=== PATIENT | female | born 1960 | race Caucasian/White ===

== ENCOUNTER 2016-10-18 08:00 | Emergency (ER) | payer BC ==
[~2016-10-18] VITALS: Ht 162.6 cm; Wt 61.0 kg
[2016-10-18 08:03] VITALS: Ht 162.6 cm; Wt 61.0 kg
[2016-10-18] MEDS ORDERED: MoRPHine SULFATE 4 MG/ML 1 ML CARP\\VIAL IV STA ×2 (08:11→08:49)
[2016-10-18] MEDS ORDERED: SODIUM CHLORIDE 0.9% 1000ML 1,000 ML IV SCH (08:15)
[2016-10-18 08:22] LABS: BASO % 0.8 %; BASO ABS # 0.04 K/uL (0-0.2); COMPLETE YES; HEMATOCRIT 42.5 % (37-47); IG% 0.2 %; LYMPH % 45.7 %; LYMPH ABS # 2.34 K/uL (1.2-3.4); MEAN CELL VOLUME 88.5 fL (80-100); MEAN CORPUSCULAR HEMOGLOBIN 29.6 pg (25-34); MEAN CORPUSCULAR HGB CONC 33.4 g/dl (32-36); MEAN PLATELET VOLUME 9.4 fL (7.4-10.4); MONO % 6.1 %; NEUT % 46.2 %; PLATELET COUNT 327 K/uL (130-400); WHITE BLOOD COUNT 5.12 K/uL (4.8-10.8)
[2016-10-18 08:37] LABS: BUN/CREATININE RATIO 13.8 (10-20); CALCIUM 9.4 mg/dl (8.5-10.1); CREATININE 0.78 mg/dl (0.60-1.20); POTASSIUM 4.2 mmol/L (3.5-5.1)
[2016-10-18] MEDS ORDERED: FLUT0.15 INH (08:39)
[2016-10-18] MEDS ORDERED: CETI-41 PO (08:39)
[2016-10-18] MEDS ORDERED: AMLO-110 PO (08:39)
--- NOTE | 2016-10-18 08:42 | DIAGNOSTIC IMAGING REPORT ---
CHEST ONE VIEW PORTABLE CLINICAL HISTORY: EVALUATE ALTERED MENTAL STATUS/WEAKNESS COMPARISON STUDY: No previous studies for comparison. FINDINGS: The bones soft tissues and hemidiaphragms are normal. The cardiomediastinal silhouette is normal. The lungs are clear. The pulmonary vasculature is normal. IMPRESSION: Negative chest. Electronically signed by: Lionel Enamorado M.D. 10/18/2016 8:41 AM Dictated Date/Time: 10/18/2016 8:40 AM
--- NOTE | 2016-10-18 08:44 | DIAGNOSTIC IMAGING REPORT ---
ELBOW 2 VIEWS CLINICAL HISTORY: FALL trauma COMPARISON: None. DISCUSSION: Fracture dislocation right elbow. Humerus is dislocated anteriorly in relation to the ulna. Several loose bodies are present posterior to the distal humerus. Potentially represent small avulsions from the region of the distal humerus. There is a fracture of the radial head. Fracture extends to the articular surface. Moderate soft tissue edema. IMPRESSION: Fracture dislocation right elbow. Fracture radial head extending to the articular services. Anterior dislocation of the humerus with several small ossific fragments identified posteriorly Electronically signed by: Lionel Enamorado M.D. 10/18/2016 8:43 AM Dictated Date/Time: 10/18/2016 8:42 AM
--- NOTE | 2016-10-18 09:37 | DIAGNOSTIC IMAGING REPORT ---
RIGHT ELBOW 2 VIEWS HISTORY:56 yearsFemale. Follow-up exam of elbow fracture dislocation. Postreduction. COMPARISON: Elbow radiographs of same day at 8:25 AM TECHNIQUE: Portable frontal and lateral radiographs of the right elbow were obtained post reduction. FINDINGS: Comminuted intra-articular fracture of the radial head is again noted with approximately 3 mm of volar displacement, improved. There is also subtle lucency involving the posterior aspect of the distal humerus seen only on the lateral view. There are multiple bony fragments posterior to the elbow measuring up to 9 mm in length. There is cortical irregularity of the capitellum. The elbow joint now appears to be in appropriate alignment. Large elbow joint effusion. There is spurring of the olecranon and lateral epicondyles. There is moderate soft tissue swelling, greatest laterally. IMPRESSION: 1. Status post reduction of the previously described fracture dislocation of the elbow. The elbow now appears to be appropriately located. 2. Mildly displaced and comminuted radial head fracture demonstrates improved alignment. 3. Questioned fractures of the posterior distal humerus and capitellum with fracture fragments about the posterior elbow. This can be correlated with follow-up CT. 4. Large elbow joint effusion. The above report was generated using voice recognition software. It may contain grammatical, syntax or spelling errors. Electronically signed by: Dwight Guzmán 10/18/2016 9:36 AM Dictated Date/Time: 10/18/2016 9:31 AM
[2016-10-18] MEDS ORDERED: MoRPHine SULFATE 4 MG/ML 1 ML CARP\\VIAL IV PRN (10:15)
--- NOTE | 2016-10-18 11:48 | DIAGNOSTIC IMAGING REPORT ---
CT OF THE RIGHT ELBOW CT DOSE: 621.99 mGy.cm HISTORY: Trauma. Fracture. rt elbow injury Right TECHNIQUE: Multiaxial CT images of the right elbow were performed and reformatted in the sagittal and coronal plane without the use of contrast. COMPARISON: Routine films earlier same date FINDINGS: Previously described displaced fractures have been reduced. Fracture radial head is again noted. It is improved in alignment. Fracture again extends to the articular surface. There currently is no evidence for depression although there is a 3 mm separation at the articular surface. Size of the secondary fracture fragment is 8 mm at maximum. Several tiny ossific fragments at the fracture line are noted. There are several avulsed bony fragments appearing to originate from the posterior aspect of the distal humerus as well as calf patella in. These measure up to and include 5 mm in length with several smaller fragments noted posterior to the distal humerus. There is a joint effusion. Study currently is negative for dislocation. IMPRESSION: 1. Anatomic alignment of the major fractures previously described including near anatomic alignment of the radial head fracture. 2. Radial head and neck fracture extending to the articular surface with no major evidence for depression. Estimated maximum separation at the articular services 3 mm. 3. Several ossific fragments originating from the distal humerus and proximal ulna medially posterior to the distal humerus. 4. Soft tissue edema. Electronically signed by: Lionel Enamorado M.D. 10/18/2016 11:46 AM Dictated Date/Time: 10/18/2016 11:39 AM
[2016-10-18] MEDS ORDERED: OXYC-57 PO (12:20)
--- NOTE | 2016-10-18 12:21 | EMERGENCY ROOM VISIT NOTE ---
History Report prepared by Suzanne: Pablo Bauer Under the Supervision of: Dr. Juvenal Rose D.O. First contact with patient: 08:03 Chief Complaint: FALL Stated Complaint: FALL,POSSIBLE FRACTURES OF RIGHT SIDE History of Present Illness The patient is a 56 year old female who presents to the Emergency Room with complaints of severe right elbow pain secondary to a fall occurring about half an hour ago. She has worsening pain with movement. As per , the patient tripped over a beach chair and fell on her right arm. She was able to walk from the location of the fall to the car to get her . Since the incident, the patient has been having intermittent unresponsiveness. The patient denies hitting her head. She reports diaphoresis. Prior to the fall, the patient was at baseline. She did not have any recent illnesses. She denies headache, lower extremity pain/swelling, or any other complaints. Source of History: patient Onset: about half an hour ago Position: elbow (right) Symptom Intensity: severe Modifying Factors (Worsening): movement Associated Symptoms: + diaphoresis, No headache Review of Systems See HPI for pertinent positives & negatives. A total of 10 systems reviewed and were otherwise negative. Past Medical & Surgical Medical Problems: (1) Hyperlipidemia (2) Hypertension (3) Uterine leiomyoma Family History Patient reports no known family medical history. Social History Smoking Status: Never Smoker Marital Status: Housing Status: lives with family Occupation Status: employed Current/Historical Medications Scheduled Amlodipine (Norvasc), 5 MG PO QAM Cetirizine HCl (Zyrtec Allergy), 1 TAB PO HS Fluticasone Propionate (Nasal) (Flonase Allergy Relief), 2 SPRAYS INH QAM Scheduled PRN Oxycodone/Acetaminophen 5MG/325MG (Percocet 5MG/325MG), 1 TAB PO Q6H PRN for Pain Allergies Coded Allergies: No Known Allergies (Unverified , 10/18/16) Physical Exam Vital Signs Date Time Temp Pulse Resp B/P (MAP) Pulse Ox O2 Delivery O2 Flow Rate FiO2 10/18/16 12:15 63 10/18/16 10:00 49 17 121/77 99 Room Air 10/18/16 09:07 47 16 97/65 95 Room Air 10/18/16 08:45 46 16 106/70 100 Room Air 10/18/16 08:23 45 16 102/67 98 Room Air 10/18/16 08:08 43 10/18/16 08:03 45 12 95/52 94 Room Air Physical Exam CONSTITUTIONAL/VITAL SIGNS: Reviewed / noted above. GENERAL: Non-toxic in appearance. INTEGUMENTARY: Diaphoretic, clammy, cool. HEAD: Normocephalic. EYES: without scleral icterus or trauma. ENT/OROPHARYNX: clear and moist. LYMPHADENOPATHY/NECK: Is supple without lymphadenopathy or meningismus. RESPIRATORY: Lungs clear and equal. CARDIOVASCULAR: Regular rate and rhythm. GI/ABDOMEN: Soft and nontender. No organomegaly or pulsatile mass. No rebound or guarding. Normal bowel sounds. EXTREMITIES: Warm and well perfused. There is a palpable deformity of the right elbow, suggestive of dislocation, neurovascularly intact distally. BACK: No CVA tenderness. NEUROLOGICAL: Intact without focal deficits. PSYCHIATRIC: normal affect. MUSCULOSKELETAL: Normally developed with good muscle tone. Medical Decision & Procedures ER Provider Diagnostic Interpretation: X ray results and stated below per my interpretation and radiology interpretation. ELBOW 2 VIEWS CLINICAL HISTORY: FALL trauma COMPARISON: None. DISCUSSION: Fracture dislocation right elbow. Humerus is dislocated anteriorly in relation to the ulna. Several loose bodies are present posterior to the distal humerus. Potentially represent small avulsions from the region of the distal humerus. There is a fracture of the radial head. Fracture extends to the articular surface. Moderate soft tissue edema. IMPRESSION: Fracture dislocation right elbow. Fracture radial head extending to the articular services. Anterior dislocation of the humerus with several small ossific fragments identified posteriorly Electronically signed by: Lionel Enamorado M.D. 10/18/2016 8:43 AM Dictated Date/Time: 10/18/2016 8:42 AM CHEST ONE VIEW PORTABLE CLINICAL HISTORY: EVALUATE ALTERED MENTAL STATUS/WEAKNESS COMPARISON STUDY: No previous studies for comparison. FINDINGS: The bones soft tissues and hemidiaphragms are normal. The cardiomediastinal silhouette is normal. The lungs are clear. The pulmonary vasculature is normal. IMPRESSION: Negative chest. Electronically signed by: Lionel Enamorado M.D. 10/18/2016 8:41 AM Dictated Date/Time: 10/18/2016 8:[address] results as stated below per my review and radiologist interpretation: CT OF THE RIGHT ELBOW CT DOSE: 621.99 mGy.cm HISTORY: Trauma. Fracture. rt elbow injury Right TECHNIQUE: Multiaxial CT images of the right elbow were performed and reformatted in the sagittal and coronal plane without the use of contrast. COMPARISON: Routine films earlier same date FINDINGS: Previously described displaced fractures have been reduced. Fracture radial head is again noted. It is improved in alignment. Fracture again extends to the articular surface. There currently is no evidence for depression although there is a 3 mm separation at the articular surface. Size of the secondary fracture fragment is 8 mm at maximum. Several tiny ossific fragments at the fracture line are noted. There are several avulsed bony fragments appearing to originate from the posterior aspect of the distal humerus as well as calf patella in. These measure up to and include 5 mm in length with several smaller fragments noted posterior to the distal humerus. There is a joint effusion. Study currently is negative for dislocation. IMPRESSION: 1. Anatomic alignment of the major fractures previously described including near anatomic alignment of the radial head fracture. 2. Radial head and neck fracture extending to the articular surface with no major evidence for depression. Estimated maximum separation at the articular services 3 mm. 3. Several ossific fragments originating from the distal humerus and proximal ulna medially posterior to the distal humerus. 4. Soft tissue edema. Electronically signed by: Lionel Enamorado M.D. 10/18/2016 11:46 AM Dictated Date/Time: 10/18/2016 11:39 AM Laboratory Results 10/18/16 08:10 Red Blood Count 4.80, Mean Corpuscular Volume 88.5, Mean Corpuscular Hemoglobin 29.6, Mean Corpuscular Hemoglobin Concent 33.4, Mean Platelet Volume 9.4, Neutrophils (%) (Auto) 46.2, Lymphocytes (%) (Auto) 45.7, Monocytes (%) (Auto) 6.1, Eosinophils (%) (Auto) 1.0, Basophils (%) (Auto) 0.8, Neutrophils # (Auto) 2.37, Lymphocytes # (Auto) 2.34, Monocytes # (Auto) 0.31, Eosinophils # (Auto) 0.05, Basophils # (Auto) 0.04 10/18/16 08:10 Test 10/18/16 08:10 White Blood Count 5.12 K/uL (4.8-10.8) Red Blood Count 4.80 M/uL (4.2-5.4) Hemoglobin 14.2 g/dL (12.0-16.0) Hematocrit 42.5 % (37-47) Mean Corpuscular Volume 88.5 fL (80-100) Mean Corpuscular Hemoglobin 29.6 pg (25-34) Mean Corpuscular Hemoglobin Concent 33.4 g/dl (32-36) Platelet Count 327 K/uL (130-400) Mean Platelet Volume 9.4 fL (7.4-10.4) Neutrophils (%) (Auto) 46.2 % Lymphocytes (%) (Auto) 45.7 % Monocytes (%) (Auto) 6.1 % Eosinophils (%) (Auto) 1.0 % Basophils (%) (Auto) 0.8 % Neutrophils # (Auto) 2.37 K/uL (1.4-6.5) Lymphocytes # (Auto) 2.34 K/uL (1.2-3.4) Monocytes # (Auto) 0.31 K/uL (0.11-0.59) Eosinophils # (Auto) 0.05 K/uL (0-0.5) Basophils # (Auto) 0.04 K/uL (0-0.2) RDW Standard Deviation 41.8 fL (36.4-46.3) RDW Coefficient of Variation 12.9 % (11.5-14.5) Immature Granulocyte % (Auto) 0.2 % Immature Granulocyte # (Auto) 0.01 K/uL (0.00-0.02) Anion Gap 8.0 mmol/L (3-11) Est Creatinine Clear Calc Drug Dose 68.8 ml/min Estimated GFR () 97.8 Estimated GFR (Non- 84.4 BUN/Creatinine Ratio 13.8 (10-20) Calcium Level 9.4 mg/dl (8.5-10.1) Laboratory results as stated above per my review. Medications Administered Medications (Trade) Dose Ordered Sig/Óscar Route Start Time Stop Time Status Last Admin Dose Admin Morphine Sulfate (MoRPHine SULFATE INJ) 4 mg NOW STAT IV 10/18/16 08:11 10/18/16 08:15 DC 10/18/16 08:20 4 MG Sodium Chloride 1,000 ml @ 999 mls/hr Q1H1M IV 10/18/16 08:15 11/17/16 08:14 10/18/16 08:18 999 MLS/HR Morphine Sulfate (MoRPHine SULFATE INJ) 4 mg NOW STAT IV 10/18/16 08:49 10/18/16 08:50 DC 10/18/16 08:55 4 MG Morphine Sulfate (MoRPHine SULFATE INJ) 4 mg Q15M PRN IV 10/18/16 10:15 11/01/16 10:14 10/18/16 10:08 4 MG ECG Indication: other (Unresponsiveness) Rate (beats per minute): 44 Rhythm: sinus bradycardia Findings: no acute ischemic change, no ectopy ED Course 0803: Previous medical records were reviewed. The patient was evaluated in room B06. A complete history and physical examination was performed. 0811: Morphine Sulfate 4 mg IV 0815: Sodium Chloride 1000 ml @ 999 mls/hr IV 0849: Morphine Sulfate 4 mg IV. I performed elbow dislocation reduction. Refer to procedure note for further details. 1015: Morphine Sulfate 4 mg IV 1206: On reevaluation, the patient is resting comfortably. I discussed the results and findings with the patient. She verbalized agreement of the treatment plan. She was discharged home. Medical Decision Medication Reconciliation: I attest that I have personally reviewed the patient' s current medication list. Blood pressure Screening: Patient was found to have normal blood pressure on screening and does not require follow-up. Differential diagnosis: Etiologies such as fracture, dislocation, intra-abdominal, pneumothorax, intrathoracic , intracranial, neurologic, as well as other traumatic pathologies were entertained. This is a 56-year-old female who presents to the ED with a chief complaint of a fall and a right elbow injury. The patient tripped over a chair. She landed on her right side/elbow. She presented to the ED with complaints of right elbow pain. She also was clammy and cool when she arrived. The patient's physical exam is noted above. Elbow clinically appears to be dislocated. There are no open wounds there. There is some soft tissue edema. Distally she is neurovascularly intact. EKG showed a sinus bradycardia at a rate of 44. CBC and PRP are normal, chest x-ray was negative for acute disease. Initial x- ray of the right elbow reveals a dislocation and fracture. This was reduced. Postreduction CT scan reveals near anatomic alignment of the fracture and the dislocation is no longer present. The patient's arm was placed in a long-arm splint. She was given IV morphine during her ED stay for pain. She was given some IV fluids as well. The patient appears to be more comfortable. She is neurovascularly intact after splinting. Percocet prescription provided with outpatient orthopedic follow-up recommended. Impression Primary Impression: Dislocation, elbow closed Additional Impression: Radial head fracture, closed elbow fracture/dislocation Scribe Attestation The scribe's documentation has been prepared under my direction and personally reviewed by me in its entirety. I confirm that the note above accurately reflects all work, treatment, procedures, and medical decision making performed by me. Departure Information Dispostion Home / Self-Care Prescriptions Oxycodone/Acetaminophen 5MG/325MG (PERCOCET 5MG/325MG) Tab 1 TAB PO Q6H Y for Pain, #30 TAB Prov: Juvenal Rose D.O. 10/18/16 Referrals Murali Bryan M.D. (PCP) Forms HOME CARE DOCUMENTATION FORM, IMPORTANT VISIT INFORMATION Patient Instructions My [facility] Additional Instructions Your elbow was dislocated and has a fracture of the radial head. Keep splint clean and dry. Call Dr. Hartman for follow-up on Friday. Call today for appointment. Percocet as prescribed. No driving within 6 hours of use. Do not take additional Tylenol while taking Percocet. Follow-up with your doctor for further care and evaluation in 1-2 days. Return to the emergency department for worsening or new symptoms or any concerns. You have been examined and treated today on an emergency basis only. This is not a substitute for, or an effort to provide, complete comprehensive medical care. It is impossible to recognize and treat all injuries or illnesses in a single emergency department visit. It is therefore important that you follow up closely with your doctor. Call as soon as possible for an appointment. Problem Qualifiers
[2016-10-18] MEDS ORDERED: KETOROLAC TROMETHAMINE 30 MG/ML VIAL ONE (12:54)
[2016-10-18 12:57] VITALS: BP 127/87; PULSE 59; O2SAT 96
[2016-10-21] MEDS ORDERED: IBUP-1105 PO (14:02)
== END 2016-10-18 13:12 | disposition home or self-care (01) ==
LOC: C.EDB 08:01
DX: S52.121A Displaced fracture of head of right radius, initial encounter for closed fracture (principal); S53.114A Anterior dislocation of right ulnohumeral joint, initial encounter; W18.09XA Striking against other object with subsequent fall, initial encounter; E78.5 Hyperlipidemia, unspecified; I10 Essential (primary) hypertension; Z79.899 Other long term (current) drug therapy

== ENCOUNTER → 2016-10-21 | Outpatient (CLI) | payer BC ==
[~2016-10-21] MED LIST: AMLO-110 PO; CETI-41 PO; FLUT0.15 INH; IBUP-1105 PO; OXYC-57 PO
[2016-10-21 13:39] LABS: BASO % 0.3 %; BASO ABS # 0.03 K/uL (0-0.2); COMPLETE YES; EOS % 0.2 %; HEMATOCRIT 41.5 % (37-47); IG% 0.1 %; LYMPH % 19.8 %; LYMPH ABS # 1.74 K/uL (1.2-3.4); MEAN CELL VOLUME 88.7 fL (80-100); MEAN CORPUSCULAR HEMOGLOBIN 28.6 pg (25-34); MEAN CORPUSCULAR HGB CONC 32.3 g/dl (32-36); MEAN PLATELET VOLUME 9.9 fL (7.4-10.4); MONO % 8.6 %; PLATELET COUNT 356 K/uL (130-400); RED BLOOD COUNT 4.68 M/uL (4.2-5.4); WHITE BLOOD COUNT 8.81 K/uL (4.8-10.8)
[2016-10-21 14:17] LABS: BLOOD UREA NITROGEN 12 mg/dl (7-18); CALCIUM 9.7 mg/dl (8.5-10.1); CARBON DIOXIDE 27 mmol/L (21-32); CHLORIDE 103 mmol/L (98-107); CREATININE 0.63 mg/dl (0.60-1.20); GLUCOSE 100 mg/dl (70-99); POTASSIUM 3.6 mmol/L (3.5-5.1); SODIUM 139 mmol/L (136-145)
== END | disposition home or self-care (01) ==
LOC: C.LAB1850 11:59
PROVIDERS: ATTEND Physician Assistant
DX: Z01.818 Encounter for other preprocedural examination (principal)

== ENCOUNTER → 2016-10-22 | Day surgery (SDC) | payer BC ==
--- NOTE | 2016-10-21 11:33 | History and Physical: Surg Cnt ---
History & Physical Date Oct 21, 2016. Chief Complaint Right elbow fracture History of Present Illness This 56-year-old white female presents to the office with complaints of right elbow pain after falling on Friday morning. She was at home and was "rushing" around. She fell in the garage after tripping on a beach chair. She fell driectly onto her elbow. She was seen in the ED and diagnosed with a elbow fracture dislocation. This was reduced. Subsequent radiographic imaging and CT scan imaging showed a comminuted radial head fracture with 3 mm of displacement. She was splinted and reports here for further management. All she states her pain at this point his minimal in the elbow. She has more discomfort from swelling in her fingers. She denies any numbness or tingling. Right-hand dominant. No prior history of significant right elbow injury, though she states she has bumped it numerous times in the past. No shoulder pain. Her accompanies her. Past Medical/Surgical History Previous surgeries: None Medical history: Significant for hypertension and anxiety. History of migraines many years ago. Additional History Hepatic Disease: No Endocrine Disorder: No Kidney Disease: No Heart Disease: No Bleeding Tendencies: No Infectious Diseases: No Allergies Coded Allergies: No Known Allergies (Unverified , 10/18/16) Home Medications Scheduled Amlodipine (Norvasc), 5 MG PO QAM Cetirizine HCl (Zyrtec Allergy), 1 TAB PO HS Fluticasone Propionate (Nasal) (Flonase Allergy Relief), 2 SPRAYS INH QAM Scheduled PRN Oxycodone/Acetaminophen 5MG/325MG (Percocet 5MG/325MG), 1 TAB PO Q6H PRN for Pain Social History Smoking Status: Never Smoker Alcohol Use: occasionally Additional Notes: Family history: Noncontributory. Review of systems: Significant for above-stated conditions, otherwise unremarkable. Physical Examination Skin: warm/dry, no rash Eyes: normal inspection, EOMI, sclerae normal ENT: normal ENT inspection, pharynx normal Head: normocephalic, atraumatic Respiratory/Chest: lungs clear, normal breath sounds, no respiratory distress Cardiovascular: regular rate, rhythm, no murmur Abdomen / GI: normal bowel sounds, non tender Extremities: + pertinent finding (right arm is splinted. No elbow motion. Intact motion to the shoulder. Intact motion to her wrist and digits as well. Digits are edematous.) Neurologic/Psych: no motor/sensory deficits, oriented x 3 Addiitonal Comments: CT scan imaging and regular radiographic imaging previously obtained shows a comminuted radial head fracture with 3 mm of displacement. There are also small bone chips posteriorly of the humerus. It is unclear as to whether these are new or old. These have been read by radiology. Diagnosis Right elbow radial head fracture Operation Right elbow radial head and neck ORIF and possible UCL repair Plan: Patient has been educated regarding today's findings. Informed written consent has been obtained by Dr. Mccray to proceed with right elbow radial head and neck ORIF and possible UCL repair. Preoperative CBC, PRP, and EKG were ordered. Prescription has been provided for Keflex. She already has a prescription for Percocet.
[2016-10-21 14:03] VITALS: Ht 162.6 cm; Wt 56.8 kg
[~2016-10-22] VITALS: Ht 162.6 cm; Wt 56.8 kg
[~2016-10-22] MED LIST changes: +ATROPINE SULFATE 0.1 MG/ML 5ML SYR IV PRN; +CEFAZOLIN 2000 MG/60 ML D5W IV SCH; +DEXAMETHASONE SOD INJ 4 MG/ML VIAL ONE; +EpHEDrine SULFATE INJ 50 MG/ML AMP IV PRN; +FENTANYL CITRATE INJ 50 MCG/1 ML 2 ML VIAL IV PRN; +FENTANYL CITRATE INJ 50 MCG/1 ML 2 ML VIAL ONE; +LACTATED RINGER'S 1000ML 1,000 ML IV SCH; +LEVOFLOXACIN 500 MG TAB PO SCH; +LIDOCAINE HCL 2% 2 ML VIAL (20MG/ML) ONE; +MIDAZOLAM HCL 1 MG/ML 2ML VIAL ONE; +ONDANSETRON INJ 2 MG/ML 2 ML VIAL IV PRN; +ONDANSETRON INJ 2 MG/ML 2 ML VIAL ONE; -OXYC-57 PO; +OXYCODONE/ACETAMINOPHEN 5-325 TAB PO PRN; +PROPOFOL IV EMULSION 10 MG/ML 20 ML VIAL IV ONE; +ROPIVACAINE 0.5% 5 MG/ML 30 ML VIAL ONE; +SCOPOLAMINE 1.5 MG TDSY TD ONE; +SODIUM CHLORIDE 0.9% 1000ML 1,000 ML IV SCH; +SUCCINYLCHOLINE CHLORIDE 20 MG/ML 10 ML VIAL IV ONE
--- NOTE | 2016-10-22 06:33 | History & Physical Bridge Note ---
H&P Re-Evaluation Bridge Note: I have examined the patient, reviewed the History & Physical and in the interval since the performance of the History & Physical I have noted the following changes of clinical significance: No changes noted
--- NOTE | 2016-10-22 06:36 | Discharge Instructions ---
Discharge Instructions Date of Service Oct 22, 2016. Visit Reason for Visit: Right Elbow Fracture Discharge Discharge Diagnosis / Problem: same Discharge Goals Goal(s): Decrease discomfort, Improve function Medications Stopped Medications Name(s): none Restart Stopped Medication(s): use all scripts as directed Activity Recommendations Activity Limitations: as noted below Lifting Limitations: until after follow-up appointment Exercise/Sports Limitations: until after follow-up appointment May Resume Sexual Activity: when tolerated Shower/Bathe: keep incision dry Driving or Machine Use: Anesthesia . Post Anesthesia Instructions: If you have had General Anesthesia or IV Sedation: * Do not drive today. * Resume driving when surgeon permits. * Do not make important decisions or sign legal documents today. * Call surgeon for: 1. Temperature elevations greater than 101 degrees F. 2. Uncontrollable pain. 3. Excessive bleeding. 4. Persistent nausea and vomiting. 5. Medication intolerance (nausea, vomiting or rash). * For nausea and vomiting use only clear liquids such as: tea, soda, bouillon until nausea subsides, then gradually increase diet as tolerated. * If you have any concerns or questions, call your surgeon's office. If physician is unavailable and it is an emergency, call 911 or go to the nearest emergency room. . Instructions / Follow-Up Instructions / Follow-Up DIET: * Resume previous diet. MEDICATIONS: * Please take your prescriptions as instructed at your pre-op appointment and/ or see medication discharge instructions listed above. * If concerns develop, call your physician's office at . SPECIAL CARE INSTRUCTIONS: * Ice/Elevate as instructed. * Keep dressing clean, dry, intact. * Your surgical extremity may be discolored due to prepping agents used on the skin. A bluish-green tint is a normal variant and should not cause alarm. Call your doctor at [phone] if: * Temperature above 101 degrees * Pain not relieved by pain medicine ordered * There is increased drainage or redness from any incision * You have any unanswered questions, problems or concerns. FOLLOW UP VISIT: * If not already scheduled, please call the office at to schedule a follow-up appointment. Diet Recommendations Recommended Home Diet: resume previous diet Procedures Procedures Performed: orif r elbow fracture radial head Pending Studies Studies pending at discharge: no Medical Emergencies . Who to Call and When: Medical Emergencies: If at any time you feel your situation is an emergency, please call 911 immediately. . Non-Emergent Contact Non-Emergency issues call your: Specialist Call Non-Emergent contact if: temperature is above 101.5 . . "Provider Documentation" section prepared by Jordan Mccray. .
--- NOTE | 2016-10-22 10:24 | [facility] Post Operative Brief Note ---
Immediate Operative Summary Operative Date Oct 22, 2016. Pre-Operative Diagnosis Right Elbow Fracture Post-Operative Diagnosis Same Procedure(s) Performed Right Elbow Fracture Open Reduction Internal Fixation Of Radial Head/Neck Surgeon Dr Mccray [employer] Team Lead Surgeon(s) Sally Hopper PA-C Estimated Blood Loss 25 ML Findings 3 part head and neck fx/compression deformity Fluids (cc crystalloids) 1000cc Specimens None Drains none Anesthesia LMA Complication(s) None Disposition Recovery Room / PACU
--- NOTE | 2016-10-22 10:36 | [facility] Operative Report ---
Operative Report Date of Service Oct 22, 2016. Operative Report Preoperative diagnosis fracture dislocation right elbow with three-part radial head and neck fracture Postoperative diagnosis three-part displaced radial head neck fracture unstable osteoporosis severe deformity Surgeon Shazia Hopper, no resident or fellow available Perioperative situation medically cleared female with the x-ray revealing fracture dislocation of the elbow show underwent close reduction but has significant deformity and displacement over radial head fragments. She also has some calcific tendinopathy in the triceps. Not sure whether this is new or old but elicits no we will not address that she understands this. She was advised concerning CONDITIONS including postoperative arthrofibrosis hardware issues radial ulnar and median nerve injury all blood vessel injury etc. Operation after the patient was properly identified site for Vicryl center 52 g of Anc, his be given a right upper extremity was prepped and draped in routine fashion care taken not to dislocate the elbow. Tourniquet was inflated to 250 mmHg after exsanguination Hudson rubber bandage for a total of 104 minutes. A modified Olga approach was utilized with the moved slightly anterior. Subcutaneous flaps were raised and then the soft tissue mass was then incised just anterior to the lateral epicondyles with care taken to protect the lateral ulnar collateral ligament. Full-thickness flaps were raised. The joint was then entered hematoma was evacuated. The joint was then inspected there was complete displacement of the radial head fragments there was a greenstick deformity and instability to the radial neck. Fracture site was then irrigated all debris removed. The posterior calcifications on x-ray were left alone as there were calcific tendinopathy. Multiple attempts were made to try to create a stable construct of the proximal fragment using K wires and multiple screws. Ultimately 2 screws were placed in compression technique creating a anatomic alignment of the proximal fragment this was then aligned with the shaft. Action carried distally down the radius so very carefully by a fully pronating and then subperiosteally blunt dissecting teasing off the soft tissue of the supinator to protect the radial and posterior interosseous nerves at no point were any retractors placed over the top of the radial neck or shaft. Good lateral and posterior exposure of the radius was obtained. Once the proximal preop piece was stable the piece was in lineup shaft and secured with a small radial plate this was specially designed for maximal radial neck fractures. It was secured with 2 additional screws 2.4 standard cortical screws which are sucked the plate down to the bone nicely. Additional locking screws were then placed in the proximal fragments. Arm was then placed through a flexion-extension arc of pronation supination arc and there was no instability to the fracture fragments. We'll wasn't copious irrigated. Detailed closure of the lateral capsule was then done with 0 Vicryl in atomic repair was obtained. The fascia was then closed as well. The wound was irrigated. This A was then closed with 20 plain and skin status to clips. A light dressing applied. Excellent fluoroscopic x-rays were then taken both in AP and lateral planes and revealed anatomic joint reduction in anatomic positioning of the radial head neck fragments. Once this was done the dressing was complete and a posterior fiberglass 5 in splint and a three-inch coaptation lateral splint applied locking the elbow in a neutral position pronation supination-disla and at 90 of flexion. Once the splint was hard hardened, the x -rays were repeated revealing anatomic reduction of the joint and the fracture. The procedure was then terminated the patient was then transferred to recovery in satisfactory condition he tolerated the procedure well. Implants used were locking plate radial head neck 2.4 mm 6 total screws were utilized to cortical screws on the plate to interfragmentary screws outside the plate and 2 locking screws with the plate. His were all diffuse Synthes modular mini fragment LCP system. End dictation thank you, carbon copy to Dr. Mccray and the hospital chart. I attest to the content of the Intraoperative Record and any orders documented therein. Any exceptions are noted below.
--- NOTE | 2016-10-22 10:47 | [facility] Operative Report ---
Operative Report Operative Date Oct 22, 2016. Pre-Operative Diagnosis Right Elbow radial head Fracture Post-Operative Diagnosis Right elbow Same Procedure(s) Performed Right Elbow Fracture Open Reduction Internal Fixation Of Radial Head/Neck Surgeon Dr Mccray Pulp Operator Surgeon(s) Sally Hopper PA-C Estimated Blood Loss 25 ML Findings Fractured radial head and neck right elbow Fluids (cc crystalloids) 1000cc Specimens None Complication(s) None Indications This 56-year-old white female presented the office yesterday with complaints of right elbow pain after falling in her garage on Friday. She sustained a elbow fracture dislocation at that time and was seen in the ED. The elbow was reduced. She was splinted and referred to our office for Friday morning. Radiographic imaging was obtained. She elected to proceed with surgical intervention after being educated about potential risks and outcomes. Description of Procedure Patient was administered a regional block and then taking the operating room where she was given general anesthesia. She was prepped and draped in usual sterile fashion. Please see Dr. Mccray's operative report for specifics of the procedure. I was present for the entire case from initial patient positioning through final wound closure. Assistance was provided in tissue traction, hemostasis, fracture reduction, hardware placement, and final wound closure. Patient was taken to the recovery room in satisfactory condition. I attest to the content of the Intraoperative Record and any orders documented therein. Any exceptions are noted below.
--- NOTE | 2016-10-22 11:02 | Anesthesia Progress Nt - [facility] ---
Anesthesia Post Op Note Date & Time Oct 22, 2016 at 11:02 Vital Signs Pain Intensity: 0 Vital Signs Past 12 Hours Date Time Temp Pulse Resp B/P (MAP) Pulse Ox O2 Delivery O2 Flow Rate FiO2 10/22/16 10:29 36.4 86 8 149/94 100 Mask 4 10/22/16 07:47 92 28 98 10/22/16 07:47 94 10/22/16 07:46 145/88 10/22/16 07:42 73 10 99 10/22/16 07:42 73 10/22/16 07:41 136/89 10/22/16 07:37 81 10/22/16 07:37 81 13 98 10/22/16 07:36 142/87 10/22/16 07:32 78 14 98 10/22/16 07:32 80 10/22/16 07:31 129/91 10/22/16 07:30 82 12 98 10/22/16 07:30 80 10/22/16 07:26 144/92 10/22/16 07:25 82 16 98 10/22/16 07:25 80 10/22/16 07:21 141/90 10/22/16 07:20 85 16 98 10/22/16 07:20 85 10/22/16 07:19 89 10/22/16 07:19 90 17 98 10/22/16 07:16 138/87 10/22/16 07:14 87 14 99 10/22/16 07:14 86 10/22/16 07:11 145/94 10/22/16 07:09 83 10/22/16 07:09 82 9 100 10/22/16 07:06 138/87 10/22/16 07:04 80 17 100 10/22/16 07:04 80 10/22/16 07:03 158/103 10/22/16 07:02 92 19 158/103 (121) 99 Room Air 10/22/16 06:59 93 10/22/16 06:28 36.9 90 16 138/105 (116) 99 Room Air Notes Mental Status: alert / awake / arousable, participated in evaluation Pt Amnestic to Procedure: Yes Nausea / Vomiting: adequately controlled Pain: adequately controlled Airway Patency, RR, SpO2: stable & adequate BP & HR: stable & adequate Hydration State: stable & adequate Anesthetic Complications: no major complications apparent
[2016-10-22 11:23] VITALS: TEMP 36.9
[2016-10-22 11:58] VITALS: BP 128/85; PULSE 88; O2SAT 95
== END | disposition home or self-care (01) ==
LOC: X.SURG 06:08
PROVIDERS: ATTEND Physical Medicine & Rehabilitation Sports Medicine
DX: S52.121P Displaced fracture of head of right radius, subsequent encounter for closed fracture with malunion (principal); S52.131 Displaced fracture of neck of right radius; M65.221 Calcific tendinitis, right upper arm; M81.0 Age-related osteoporosis without current pathological fracture; M21.831 Other specified acquired deformities of right forearm; I10 Essential (primary) hypertension; F32.9 Major depressive disorder, single episode, unspecified; W18.09XA Striking against other object with subsequent fall, initial encounter

== ENCOUNTER → 2016-11-12 | Outpatient (CLI) | payer BC ==
[~2016-11-12] MED LIST changes: -ATROPINE SULFATE 0.1 MG/ML 5ML SYR IV PRN; -CEFAZOLIN 2000 MG/60 ML D5W IV SCH; -DEXAMETHASONE SOD INJ 4 MG/ML VIAL ONE; -EpHEDrine SULFATE INJ 50 MG/ML AMP IV PRN; -FENTANYL CITRATE INJ 50 MCG/1 ML 2 ML VIAL IV PRN; -FENTANYL CITRATE INJ 50 MCG/1 ML 2 ML VIAL ONE; -LACTATED RINGER'S 1000ML 1,000 ML IV SCH; -LEVOFLOXACIN 500 MG TAB PO SCH; -LIDOCAINE HCL 2% 2 ML VIAL (20MG/ML) ONE; -MIDAZOLAM HCL 1 MG/ML 2ML VIAL ONE; -ONDANSETRON INJ 2 MG/ML 2 ML VIAL IV PRN; -ONDANSETRON INJ 2 MG/ML 2 ML VIAL ONE; -OXYCODONE/ACETAMINOPHEN 5-325 TAB PO PRN; -PROPOFOL IV EMULSION 10 MG/ML 20 ML VIAL IV ONE; -ROPIVACAINE 0.5% 5 MG/ML 30 ML VIAL ONE; -SCOPOLAMINE 1.5 MG TDSY TD ONE; -SODIUM CHLORIDE 0.9% 1000ML 1,000 ML IV SCH; -SUCCINYLCHOLINE CHLORIDE 20 MG/ML 10 ML VIAL IV ONE
--- NOTE | 2016-11-13 13:41 | MAMMOGRAPHY REPORT ---
BILATERAL DIGITAL SCREENING MAMMOGRAM TOMOSYNTHESIS WITH CAD: 11/12/2016 CLINICAL HISTORY: Routine screening. TECHNIQUE: Breast tomosynthesis in addition to standard 2D mammography was performed. Current study was also evaluated with a Computer Aided Detection (CAD) system. COMPARISON: Comparison is made to exams dated: 07/14/2014 mammogram, 12/05/2010 mammogram, 04/27/2012 ma mmogram - [facility], 10/06/2007, and 03/31/2007. BREAST COMPOSITION: The tissue of both breasts is heterogeneously dense, which may obscure small mas ses. FINDINGS: The breast parenchymal pattern is similar to prior mammograms. No suspicious spiculated o r irregular mass, architectural distortion or cluster of microcalcifications is seen. IMPRESSION: ACR BI-RADS CATEGORY 1: NEGATIVE There is no mammographic evidence of malignancy. A 1 year screening mammogram is recommended. The pa tient will receive written notification of the results. Approximately 10% of breast cancers are not detected with mammography. A negative mammographic report should not delay biopsy if a clinically suggestive mass is present. Linsdey Villatoro M.D. ay/:11/12/2016 16:16:37 Plane Captain: Raven SANDERS(R)(M), [facility] letter sent: Normal 1/2 BI-RADS Code: ACR BI-RADS Category 1: Negative
== END | disposition home or self-care (01) ==
LOC: C.MAMM 07:43
PROVIDERS: ATTEND Family Medicine
DX: Z12.31 Encounter for screening mammogram for malignant neoplasm of breast (principal)

== ENCOUNTER → 2016-11-18 | Outpatient (CLI) | payer BC | END | disposition home or self-care (01) | LOC: C.RDSM 11:50 | PROVIDERS: ATTEND Physical Medicine & Rehabilitation Sports Medicine | DX: M25.521 Pain in right elbow (principal) ==

== ENCOUNTER → 2016-12-23 | Outpatient (CLI) | payer BC | END | disposition home or self-care (01) | LOC: C.RDSM 08:42 | PROVIDERS: ATTEND Physical Medicine & Rehabilitation Sports Medicine | DX: M25.521 Pain in right elbow (principal) ==

== ENCOUNTER → 2017-02-03 | Outpatient (CLI) | payer BC | END | disposition home or self-care (01) | LOC: C.RDSM 07:25 | PROVIDERS: ATTEND Physical Medicine & Rehabilitation Sports Medicine | DX: Z87.81 Personal history of (healed) traumatic fracture (principal) ==

== ENCOUNTER → 2017-04-21 | Outpatient (CLI) | payer BC, OTHER | END | disposition home or self-care (01) | LOC: C.RDSM 10:12 | PROVIDERS: ATTEND Physical Medicine & Rehabilitation Sports Medicine | DX: S52.121D Displaced fracture of head of right radius, subsequent encounter for closed fracture with routine healing (principal); X58.XXXD Exposure to other specified factors, subsequent encounter ==